=== PATIENT | female | born 1945 | race Caucasian/White ===

== ENCOUNTER → 2023-08-03 09:59 | Outpatient (REF) | payer MEDICARE, OTHER, SELFPAY | LOC: WDC 09:59 | PROVIDERS: ATTENDING PHYSICIAN Family Medicine Geriatric Medicine; FAMILY PHYSICIAN Internal Medicine | DX: N63.22 Unspecified lump in the left breast, upper inner quadrant (principal); C50.512 Malignant neoplasm of lower-outer quadrant of left female breast | CPT/HCPCS: 76642; 77061; 77065 ==

== ENCOUNTER → 2023-09-11 10:14 | Outpatient (REF) | payer MEDICARE, OTHER, SELFPAY | LOC: RAD 10:14 | PROVIDERS: ATTENDING PHYSICIAN Internal Medicine | DX: M25.551 Pain in right hip (principal) | CPT/HCPCS: 73502 ==

== ENCOUNTER → 2024-01-15 11:39 | Outpatient (REF) | payer MEDICARE, OTHER, SELFPAY | LOC: WDC 11:39 | PROVIDERS: ATTENDING PHYSICIAN Family Medicine Geriatric Medicine; FAMILY PHYSICIAN Internal Medicine | DX: Z12.31 Encounter for screening mammogram for malignant neoplasm of breast (principal); Z13.820 Encounter for screening for osteoporosis; Z78.0 Asymptomatic menopausal state; R92.8 Other abnormal and inconclusive findings on diagnostic imaging of breast | CPT/HCPCS: 76642; 77063; 77067; 77080 ==

== ENCOUNTER → 2024-02-18 07:42 | Outpatient (REF) | payer MEDICARE, OTHER, SELFPAY ==
[2024-02-18 09:48] LABS: Hemoglobin 14.6 g/dL (12.0-16.0); Mean Corpuscular Hgb 31.5 pg (27.0-31.0); Mean Corpuscular Volume 92.7 fL (81.0-99.0); Mean Platelet Volume 9.5 fL (7.4-10.4); Platelet Count 224 10^3/uL (130-400); Red Blood Cell Count 4.64 10^6/uL (4.20-5.40); Red Cell Dist. Width 12.1 % (11.5-14.5); White Blood Cell Count 4.2 10^3/uL (4.8-10.8)
[2024-02-18 09:59] LABS: ALT (SGPT) 19 U/L (0-35); AST (SGOT) 27 U/L (14-36); Albumin 4.4 g/dl (3.5-5.0); Alkaline Phosphatase 58 U/L (38-126); Blood Urea Nitrogen 26 mg/dl (7-17); Calcium 9.8 mg/dl (8.4-10.2); Carbon Dioxide 28 mmol/L (22-30); Chloride 106 mmol/L (98-107); Glucose 91 mg/dl (70-99); HDL Cholesterol 88 mg/dl; LDL Cholesterol, Calculated 135 mg/dl; Potassium 4.3 mmol/L (3.5-5.1); Sodium 144 mmol/L (135-145); Total Bilirubin 0.7 mg/dl (0.2-1.3); Total Cholesterol 243 mg/dl (50-199); Total Protein 7.1 g/dl (6.3-8.2); Triglyceride 100 mg/dl (10-149); Very Low Density Lipoprotein 20 mg/dl (0-30); eGFR > 60.00
[2024-02-18 10:27] LABS: TSH Reflex To Free T4 6.01 uIU/ml (0.47-4.68)
[2024-02-18 10:54] LABS: Free T4 1.02 ng/dl (0.78-2.19)
[2024-02-18 12:06] LABS: % Basophils 0.7 % (0-2); % Eosinophils 1.9 % (0-6); % Lymphocytes 54.7 % (20.5-51.1); % Monocytes 10.4 % (1.7-9.3); % Neutrophils 32.3 % (42.2-75.2); Absolute Eosinophils 0.1 10^3/uL (0-0.7); Absolute Lymphocytes 2.3 10^3/uL (1.2-3.4); Absolute Monocytes 0.4 10^3/uL (0.1-0.6); Absolute Neutrophils 1.4 10^3/uL (1.4-6.5); Nucleated Red Blood Cells % 0 %
== END ==
LOC: HWLAB 07:42
PROVIDERS: ATTENDING PHYSICIAN Internal Medicine
DX: E03.9 Hypothyroidism, unspecified (principal); E78.5 Hyperlipidemia, unspecified; I10 Essential (primary) hypertension
CPT/HCPCS: 36415; 80053; 80061; 84439; 84443; 85025

== ENCOUNTER → 2024-03-07 12:50 | Outpatient (REF) | payer MEDICARE, OTHER, SELFPAY ==
[2024-03-07 13:03] VITALS: BP_SYST 90
[2024-03-07] MEDS: SYRINGE NON-PUMP 20 MG IRRIG (14:15)
[2024-03-07] MEDS: SYRINGE NON-PUMP 20 ML IRRIG (14:15)
== END ==
LOC: RADI 12:50
PROVIDERS: ATTENDING PHYSICIAN Surgery; FAMILY PHYSICIAN Internal Medicine
DX: N64.89 Other specified disorders of breast (principal); C50.912 Malignant neoplasm of unspecified site of left female breast
CPT/HCPCS: 10030; 49185; 87015; 87070; 87205

== ENCOUNTER → 2024-05-28 13:38 | Outpatient (REF) | payer MEDICARE, OTHER, SELFPAY | LOC: WDC 13:38 | PROVIDERS: ATTENDING PHYSICIAN Surgery; FAMILY PHYSICIAN Internal Medicine | DX: R92.8 Other abnormal and inconclusive findings on diagnostic imaging of breast (principal); Z85.3 Personal history of malignant neoplasm of breast; C50.412 Malignant neoplasm of upper-outer quadrant of left female breast; N64.89 Other specified disorders of breast | CPT/HCPCS: 76642 ==

== ENCOUNTER 2024-07-30 06:33 | Day surgery (SDC) | payer MEDICARE, OTHER, SELFPAY ==
[2024-07-14 14:03] VITALS: BMI 26.5
[2024-07-30] VITALS (7 sets, daily range): BP systolic 2–141; BP diastolic 69–82; BMI 26.5
[2024-07-30] MEDS: NORMOSOL-R/PLASMALYTE-A 1000 IV (11:51)
[2024-07-30] MEDS: EMEND 40 MG PO (13:11)
--- NOTE | 2024-07-30 16:32 | W.IMMPOSTOP ---
Surgical Immed Post Op Note
-
Primary Surgeon: ABIOLA Marroquin MD
Assisting Surgeon:
Pre-op Diagnosis: History of breast cancer, status post acquired absence of right breast and nipple areolar complex, seroma of left breast
Post-op Diagnosis: Same
Procedure Performed: Revision of right reconstructed breast, left breast reduction, excision of seroma cavity with total capsulectomy left breast
Anesthesia Type: General
Specimen / Cultures: Left seroma cavity
Estimated Blood Loss: 30 cc
Complications: None
Operative Findings: As expected
--- NOTE | 2024-07-30 16:32 | OR.RPT ---
Operative Report
Operative Report
Date of surgery: 07/30/2024
Surgeon: ABIOLA Marroquin MD
Preoperative diagnosis:
1. History of breast cancer
2. 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
3. Seroma of left breast, chronic
4. History of radiation
5. Status post left breast lumpectomy
Postoperative diagnosis: Same
Procedure:
1. Left breast seroma cavity excision with total capsulectomy
2. Left breast reduction
3. Right revision reconstructed breast
4. Right adjacent tissue transfer 25 x 6 cm
Anesthesia: General
EBL: 30 cc
Complications: None
Specimens: Left breast seroma capsule
Indications for procedure: Patient is a 79-year-old female with a history of breast cancer status post right mastectomy and pedicle TRAM flap reconstruction. History of radiation. She recently had a left lumpectomy complicated by chronic seroma.
Status post multiple attempts at aspiration drainage and sclerosis. She presented with a firm hard mass of the left breast causing significant pain symptoms. She desired excision of the seroma cavity. In order to occupy the potential space
created by the seroma cavity, we discussed a balancing breast reduction on the left side. A drain would be required. Risks were reviewed at length. Conversation was had about revising the right flap reconstruction in order to match the left
reduced breast. She desired to proceed with this. This would require flap contouring, mobilization and reinset superiorly. Local tissue rearrangement would be required to tailor the residual skin. Risks include recurrent seroma formation, wound
healing complications, asymmetry, fat necrosis, infection and hematoma. She understood these risk desire to proceed
Procedure in detail: Patient was identified preoperatively and the surgical site was confirmed to be the bilateral breast. On the left side and inferior/central pedicle Moon pattern breast reduction was marked out. An additional incision was
planned for the seroma excision and capsulectomy. This was within the Moon pattern markings. On the right side potential balancing procedure was marked out as well. This was explained that would be confirmed intraoperatively once the left breast
was completed. All questions were answered consents were confirmed. Patient was taken back to the operative room placed supine on table. Anesthesia was induced and the patient was prepped and draped in usual sterile fashion. Timeout for patient
safety was performed was confirmed that preoperative antibiotics have been administered and bilateral SCDs were in place. Procedure began with marking the left nipple areolar complex with a 42 mm cookie cutter. The prior lumpectomy scar was
incised and dissection continued down to the seroma capsule. The capsule was dissected free from the surrounding tissues with Bovie electrocautery. Following this a superior pole defect remained. This will be occupied with essentially a left
oncoplastic breast reduction. Skin within the Moon pattern markings was de-epithelialized and medial and lateral skin flaps were elevated to the pectoralis fascia for advancement. Marcaine block was performed and the pectoralis intercostal muscle
fascia's. 15 [place] Dewayne was left and sutured in place after being tunneled through the subcutaneous tissues. The breast was then closed in layers with a series of 2-0 Vicryl, 3-0 Monocryl, INSORB stapler, 4-0 Monocryl. The nipple had adequate
perfusion and remained pink throughout. The patient was then flexed at the waist and a right revision to the reconstructed breast as well as adjacent tissue transfer was marked out with tailor tacking. Following this the patient was returned
supine and the prior mastectomy skin flap was reelevated to the pectoralis fascia. This occurred superiorly to the level of the JORGE perforators which were preserved. The flap itself was then contoured and mobilized and inset with a series of 2-0
Vicryl sutures to pectoralis fashion. Following this the local tissue rearrangement was marked out with tailor tacking to allow for symmetric skin envelopes for the bilateral breast. After this was marked out back cuts were performed with excision
of the TRAM flap skin paddle. Bovie electrocautery was utilized to dissect out the tissues and ensured meticulous hemostasis throughout. This wound was closed with a series of 3-0 Monocryl, INSORB stapler, 4-0 Monocryl. A drain was placed in the
potential space superiorly. Patient tolerated the procedure well was performed out complication. All counts were correct at the end the case. She was extubated taken the PACU further care.
== END 2024-07-30 18:49 | disposition home or self-care (01) ==
LOC: SDS 06:33
PROVIDERS: ATTENDING PHYSICIAN Surgery Plastic and Reconstructive Surgery
DX: L76.34 Postprocedural seroma of skin and subcutaneous tissue following other procedure (principal); N64.89 Other specified disorders of breast; Z85.3 Personal history of malignant neoplasm of breast; Z90.11 Acquired absence of right breast and nipple; Z92.3 Personal history of irradiation; Y83.8 Other surgical procedures as the cause of abnormal reaction of the patient, or of later complication, without mention of misadventure at the time of the procedure
CPT/HCPCS: 19318; 19380; 19120; 14000; 88304; C1729

== ENCOUNTER → 2024-12-25 14:43 | Outpatient (REF) | payer MEDICARE, OTHER, SELFPAY | LOC: WDC 14:43 | PROVIDERS: ATTENDING PHYSICIAN Internal Medicine | DX: Z12.31 Encounter for screening mammogram for malignant neoplasm of breast (principal) | CPT/HCPCS: 77063; 77067 ==

== ENCOUNTER → 2025-02-20 08:40 | Outpatient (REF) | payer MEDICARE, OTHER, SELFPAY ==
[2025-02-20 09:52] LABS: Hematocrit 41.8 % (37.0-47.0); Hemoglobin 14.1 g/dL (12.0-16.0); Mean Corp Hgb Conc. 33.7 g/dL (33.0-37.0); Mean Corpuscular Volume 92.5 fL (81.0-99.0); Nucleated Red Blood Cells % 0 %; Platelet Count 212 10^3/uL (130-400); Red Cell Dist. Width 12.0 % (11.5-14.5)
[2025-02-20 10:21] LABS: ALT (SGPT) 22 U/L (0-35); AST (SGOT) 29 U/L (14-36); Albumin 4.4 g/dl (3.5-5.0); Alkaline Phosphatase 63 U/L (38-126); Blood Urea Nitrogen 25 mg/dl (7-17); Calcium 9.9 mg/dl (8.4-10.2); Carbon Dioxide 30 mmol/L (22-30); Chloride 104 mmol/L (98-107); Glucose 91 mg/dl (70-99); HDL Cholesterol 90 mg/dl; LDL Cholesterol, Calculated 134 mg/dl; Potassium 4.5 mmol/L (3.5-5.1); Sodium 138 mmol/L (135-145); Total Protein 7.1 g/dl (6.3-8.2); Very Low Density Lipoprotein 16 mg/dl (0-30); eGFR > 60.00
== END ==
LOC: REG 08:40
PROVIDERS: ATTENDING PHYSICIAN Internal Medicine
DX: E03.9 Hypothyroidism, unspecified (principal); E78.5 Hyperlipidemia, unspecified; I10 Essential (primary) hypertension
CPT/HCPCS: 36415; 80053; 80061; 84443; 85025